=== PATIENT | male | born 1935 | race Caucasian/White ===

== ENCOUNTER → 2017-07-01 | Outpatient (CLI) | payer MEDICARE ==
[~2017-07-01] MED LIST: ALBU90OI INH; ATOR10 PO; Acidophilus La100 GM PO; Atrovent Inha12.9 GM INH; B Complex #11 EACH PO; B Complex1 EAC2 PO; BUME2 PO; Bactrim Ds Tab1 EACH PO; CEFU500 PO; CIPR500 PO; CODEINE-GUAIFE120 ML PO; DABI150C PO; DONE5 PO; FINA5 PO; HYDCHL25 PO; HYDR10; LACTOBACILLUS PO; LISI20 PO; NIFE60ER PO; NITR.4SL SL; Nifediac Cc60 MG PO; Norco 5-325 Ta1 EACH PO; Omeprazole20 M1 PO; POTCHL10ER PO; Pyridium100 MG PO; Pyridium200 MG PO; STOOL SOFTENER100 MG PO; TAMS.4ER PO; VOLTAREN GEL TOP; Zithromax250 MG PO
== END | disposition home or self-care (01) ==
LOC: LAB 07:35 → LAB SHORT 07:35
DX: R10.9 Unspecified abdominal pain (principal)
CPT/HCPCS: 87338

== ENCOUNTER 2018-10-03 15:21 | Emergency (ER) | payer MEDICARE ==
[~2018-10-03] VITALS: Ht 177.8 cm; Wt 77.1 kg
[2018-10-03 16:06] LABS: Source, Urine Clean Catch
[2018-10-03 16:12] LABS: BASOPHILS ABSOLUTE AUTO 0.08 K/mm3 (0.00-0.23); BASOPHILS PERCENT AUTO 1 % (0-2); EOSINOPHILS ABSOLUTE AUTO 0.15 K/mm3 (0.00-0.68); EOSINOPHILS PERCENT AUTO 1 % (0-6); Hematocrit 42.8 % (37.0-53.0); Hemoglobin 13.9 g/dL (13.5-17.5); IMMATURE GRAN PERCENT AUTO 1 % (0-1); LYMPHOCYTES ABSOLUTE AUTO 1.29 K/mm3 (0.84-5.20); LYMPHOCYTES PERCENT AUTO 8 % (21-46); MONOCYTES ABSOLUTE AUTO 1.68 K/mm3 (0.16-1.47); MONOCYTES PERCENT AUTO 11 % (4-13); Mean Corpuscular HGB 31.2 pg (26.0-34.0); Mean Corpuscular HGB Conc 32.5 g/dL (31.5-36.5); Mean Corpuscular Volume 96 fL (80-100); Mean Platelet Volume 9.2 fL (9.1-12.4); NEUTROPHILS ABSOLUTE AUTO 12.77 K/mm3 (1.96-9.15); NEUTROPHILS PERCENT AUTO 80 % (41-73); Platelet Count 235 K/mm3 (150-400); RDW Coefficient Variation 13.3 % (11.7-14.2); RDW Standard Deviation 47.8 fL (35.1-46.3); Red Blood Cell Count 4.45 M/mm3 (4.30-5.90); White Blood Cell Count 16.07 K/mm3 (4.00-11.30)
[2018-10-03 16:13] LABS: Bilirubin, Urine Neg (Neg); Blood, Urine 5+ (Neg); Glucose Qualitative, Urine Neg (Neg); Ketones, Urine 2+ (Neg); Leukocyte Esterase, Urine 2+ (Neg); Nitrite, Urine Neg (Neg); Protein, Urine 4+ (Neg); Urobilinogen, Urine NORM (Normal); pH, Urine 6.5 (5.0-8.0)
[2018-10-03 16:24] LABS: Appearance, Urine Bloody (Clear); Color, Urine Red (P-Yellow)
[2018-10-03] MEDS ORDERED: LORA.5 (16:24)
[2018-10-03] MEDS ORDERED: CLOBETASOL PRO0.5 GM (16:24)
[2018-10-03] MEDS ORDERED: HYDCHL25 PO (16:24)
[2018-10-03] MEDS ORDERED: DONEPEZIL HCL5 M1 PO (16:24)
[2018-10-03] MEDS ORDERED: ATORVASTATIN CA10 MG PO (16:25)
[2018-10-03] MEDS ORDERED: POTASSIUM CHLO20 MEQ PO (16:25)
[2018-10-03] MEDS ORDERED: LISI5 PO (16:25)
[2018-10-03] MEDS ORDERED: Fluocinonide60 ML (16:25)
[2018-10-03 16:26] LABS: Bacteria Many /hpf; Red Blood Cells, Urine TNTC /hpf (0-2); Squamous Epithelial Cells Not Seen /hpf (Few); White Blood Cells, Urine 25-50 /hpf (0-5)
[2018-10-03 16:32] LABS: Albumin, Blood 3.7 g/dL (3.4-5.0); Bilirubin, Total 1.1 mg/dL (0.1-1.0); Bun/Creatinine Ratio 19.7 (12.0-20.0); Creatinine, Blood 1.27 mg/dL (0.60-1.20); Globulin, Blood 3.6 g/dL (2.2-4.0); Potassium, Blood 3.6 mmol/L (3.5-5.5); Total Protein, Blood 7.3 g/dL (6.4-8.2)
[2018-10-03] MEDS ORDERED: CEPH500 PO (17:04)
[2018-10-03] MEDS ORDERED: OXYB5 PO (17:55)
== END 2018-10-03 18:29 | disposition home or self-care (01) ==
LOC: ER 15:21
PROVIDERS: Physician Assistant
DX: N39.0 Urinary tract infection, site not specified (principal); I10 Essential (primary) hypertension; I48.91 Unspecified atrial fibrillation; F32.9 Major depressive disorder, single episode, unspecified; E78.00 Pure hypercholesterolemia, unspecified; Z87.891 Personal history of nicotine dependence; Z79.899 Other long term (current) drug therapy
CPT/HCPCS: 36415; 51798; 80053; 81001; 85025; 87077; 87086; 87186; 96365; 99283-25; J0696

== ENCOUNTER → 2018-11-22 | Outpatient (CLI) | payer MEDICARE ==
[~2018-11-22] MED LIST changes: +ATORVASTATIN CA10 MG PO; +CEPH500 PO; +CLOBETASOL PRO0.5 GM; +DONEPEZIL HCL5 M1 PO; +Fluocinonide60 ML; +LISI5 PO; +LORA.5; +OXYB5 PO; +POTASSIUM CHLO20 MEQ PO
[2018-11-22 20:24] LABS: Appearance, Urine Clear (Clear); Bilirubin, Urine Neg (Neg); Blood, Urine 1+ (Neg); Color, Urine Amber (P-Yellow); Glucose Qualitative, Urine Neg (Neg); Ketones, Urine 1+ (Neg); Leukocyte Esterase, Urine 2+ (Neg); Nitrite, Urine Neg (Neg); Protein, Urine 2+ (Neg); Specific Gravity, Urine 1.025 (1.003-1.022); Urobilinogen, Urine 1+ (Normal)
[2018-11-22 20:52] LABS: Bacteria Many /hpf; Mucus Mod (0-Heavy); Squamous Epithelial Cells Rare /hpf (Few)
== END | disposition home or self-care (01) ==
LOC: LAB 19:28 → LAB SHORT 19:28
PROVIDERS: Physical Medicine & Rehabilitation Pain Medicine
DX: M54.5 Low back pain (principal)
CPT/HCPCS: 81001; 87086

== ENCOUNTER → 2018-12-20 | Outpatient (CLI) | payer MEDICARE ==
[2018-12-20 11:37] LABS: Source, Urine Clean Catch
[2018-12-20 12:51] LABS: Bilirubin, Urine Neg (Neg); Blood, Urine 3+ (Neg); Glucose Qualitative, Urine Neg (Neg); Ketones, Urine 1+ (Neg); Leukocyte Esterase, Urine 2+ (Neg); Nitrite, Urine Neg (Neg); Protein, Urine 2+ (Neg); Specific Gravity, Urine 1.015 (1.003-1.022); Urobilinogen, Urine 1+ (Normal)
[2018-12-20 13:34] LABS: Appearance, Urine Hazy (Clear); Bacteria Rare /hpf; Color, Urine Yellow (P-Yellow); Squamous Epithelial Cells Few /hpf (Few)
== END | disposition home or self-care (01) ==
LOC: LAB 11:35 → LAB SHORT 11:35
PROVIDERS: Nurse Practitioner Family
DX: R31.9 Hematuria, unspecified (principal)
CPT/HCPCS: 81001

== ENCOUNTER → 2019-02-16 | Outpatient (CLI) | payer MEDICARE ==
[2019-02-16 15:16] LABS: Albumin, Blood 3.5 g/dL (3.4-5.0); Anion Gap 8 mmol/L (6-16); Blood Urea Nitrogen 15 mg/dL (8-24); Bun/Creatinine Ratio 13.3 (12.0-20.0); CO2, Blood 27 mmol/L (21-32); Calcium, Blood 8.9 mg/dL (8.5-10.1); Chloride, Blood 103 mmol/L (98-108); Creatinine, Blood 1.13 mg/dL (0.60-1.20); Glomerular Filtration Rate >60 (60-); Glucose, Blood 93 mg/dL (70-99); Phosphorus, Blood 3.4 mg/dL (2.5-4.9); Potassium, Blood 3.7 mmol/L (3.5-5.5); Sodium, Blood 138 mmol/L (136-145)
[2019-02-16 20:10] LABS: Bilirubin, Urine Neg (Neg); Blood, Urine 1+ (Neg); Glucose Qualitative, Urine Neg (Neg); Ketones, Urine Neg (Neg); Leukocyte Esterase, Urine 1+ (Neg); Nitrite, Urine Neg (Neg); Protein, Urine 2+ (Neg); Urobilinogen, Urine NORM (Normal); pH, Urine 6.5 (5.0-8.0)
[2019-02-16 20:21] LABS: Appearance, Urine Clear (Clear); Color, Urine Yellow (P-Yellow)
[2019-02-16 20:23] LABS: Bacteria Few /hpf; Squamous Epithelial Cells Few /hpf (Few)
[2019-02-18 08:08] LABS: COMPLEMENT C3, SERUM 99 mg/dL (82-167); COMPLEMENT C4, SERUM 23 mg/dL (14-44)
[2019-02-18 11:44] LABS: Antinuclear Antibody Screen Positive (Negative)
[2019-02-18 13:07] LABS: ANTI-DSDNA ANTIBODIES <1 IU/mL (0-9); RNP ANTIBODIES 0.4 AI (0.0-0.9); SJOGREN'S ANTI-SS-A <0.2 AI (0.0-0.9); SJOGREN'S ANTI-SS-B <0.2 AI (0.0-0.9); SMITH ANTIBODIES <0.2 AI (0.0-0.9)
[2019-02-21 11:28] LABS: ANA Pattern Homogenous
[2019-02-23 10:07] LABS: ANA DIRECT Negative (Negative); ANTIMYELOPEROXIDASE (MPO) ABS <9.0 U/mL (0.0-9.0); ANTIPROTEINASE 3 (PR-3) ABS <3.5 U/mL (0.0-3.5); ATYPICAL PANCA <1:20 titer (Neg:<1:20); CYTOPLASMIC (C-ANCA) <1:20 titer (Neg:<1:20); PERINUCLEAR (P-ANCA) <1:20 titer (Neg:<1:20)
== END | disposition home or self-care (01) ==
LOC: LAB SHORT 14:15 → LAB 14:15
PROVIDERS: Internal Medicine
DX: N18.3 Chronic kidney disease, stage 3 (moderate) (principal); N39.0 Urinary tract infection, site not specified
CPT/HCPCS: 80069; 81001; 83520; 86038; 86039; 86160; 86225; 86235; 86256

== ENCOUNTER 2020-03-27 08:06 | Day surgery (SDC) | payer MEDICARE ==
[~2020-03-27] VITALS: Ht 177.8 cm; Wt 69.8 kg
[~2020-03-27 08:06] MED LIST changes: +ACET500 PO; +AMLO5 PO; +CYAN500 PO; +MELA3 PO; +POTCHL20ER PO; +PROBIOTIC1 EA13 PO; +VITAMIN D310 MC5 PO
--- NOTE | 2020-03-27 12:14 | NUR ---
TO DROWSY TO ASSES FOR SENSATION AT THIS TIME BLADDER SCAN COMPLETED 102 CC
--- NOTE | 2020-03-27 17:58 | NUR ---
SUMMARY VSS, DENIES ANY PAIN, PT MORE AWAKE, MOVES FEET ON COMMAND, DENIES ANY NUMBNESS OR TINGLING, VOIDED 200CC C/Y URINE, DSG C/D/I, POLAR PACK IN PLACE, NO ACUTE CHANGES THIS SHIFT.
--- NOTE | 2020-03-28 02:38 | NUR ---
SHIFT SUMMARY: POD 1 TOTAL LEFT KNEE PATIENT IS ALERT AND ORIENTED X4 WHILE AWAKE. PATIENT'S REPORTED HE CAN GET MORE CONFUSED AT NIGHT, BUT SO FAR TONIGHT HE HASN'T BEEN. VS ARE WNL AND IS ON RA WITH >90% OXYGEN SATS. PATIENT DENIES PAIN DURING THE SHIFT BUT HAS HAD SCHEDULED TYLENOL AND TORADOL. PATIENT IS TOLERATING PO INTAKE AND IS VOIDING. HE DENIES NUMBNESS AND TINGLING. HE IS ALSO ABLE TO WIGGLE FINGERS AND TOES. THE PLAN IS TO WORK WITH PT/OT LATER TODAY.
[2020-03-28 05:01] LABS: BASOPHILS ABSOLUTE AUTO 0.02 K/mm3 (0.00-0.23); BASOPHILS PERCENT AUTO 0 % (0-2); EOSINOPHILS PERCENT AUTO 0 % (0-6); Hematocrit 38.3 % (37.0-53.0); Hemoglobin 12.4 g/dL (13.5-17.5); IMMATURE GRAN ABSOLUTE AUTO 0.08 K/mm3 (0.00-0.10); IMMATURE GRAN PERCENT AUTO 1 % (0-1); LYMPHOCYTES ABSOLUTE AUTO 0.93 K/mm3 (0.84-5.20); LYMPHOCYTES PERCENT AUTO 7 % (21-46); MONOCYTES ABSOLUTE AUTO 1.17 K/mm3 (0.16-1.47); MONOCYTES PERCENT AUTO 8 % (4-13); Mean Corpuscular HGB 30.5 pg (26.0-34.0); Mean Corpuscular HGB Conc 32.4 g/dL (31.5-36.5); Mean Corpuscular Volume 94 fL (80-100); Mean Platelet Volume 9.5 fL (9.1-12.4); NEUTROPHILS ABSOLUTE AUTO 12.16 K/mm3 (1.96-9.15); NEUTROPHILS PERCENT AUTO 85 % (41-73); Platelet Count 196 K/mm3 (150-400); RDW Coefficient Variation 13.2 % (11.7-14.2); RDW Standard Deviation 46.3 fL (35.1-46.3); Red Blood Cell Count 4.06 M/mm3 (4.30-5.90); White Blood Cell Count 14.36 K/mm3 (4.00-11.30)
[2020-03-28 05:22] LABS: Bun/Creatinine Ratio 21.1 (12.0-20.0); Calcium, Blood 8.5 mg/dL (8.5-10.1); Creatinine, Blood 1.28 mg/dL (0.60-1.20); Potassium, Blood 3.2 mmol/L (3.5-5.5)
[2020-03-28] MEDS ORDERED: Percocet 5-3251 EACH PO (08:29)
--- NOTE | 2020-03-28 12:50 | NUR ---
PATIENT D/C'D HOME WITH AT THIS TIME; BOTH STATE UNDERSTANDING OF WOUND CARE, ACTIVITY, MEDS, F/U APPT, OP PT, ETC. PATIENT STATES NO PAIN AT THIS TIME. NO ACUTE CHANGES OR C/O.
== END 2020-03-28 12:50 | disposition home or self-care (01) ==
LOC: ORSCMMR 08:06 → ORD 08:15 → SURS 12:40 → ORSCMMR 03-28 12:50
PROVIDERS: Orthopaedic Surgery
PROC: 0SRD0JA Replacement of Left Knee Joint with Synthetic Substitute, Uncemented, Open Approach (ICD-10-PCS; principal; 2020-03-27 08:15)
PROC: 8E0YXBZ Computer Assisted Procedure of Lower Extremity (ICD-10-PCS; principal; 2020-03-27 08:15)
DX: M17.12 Unilateral primary osteoarthritis, left knee (principal); I10 Essential (primary) hypertension; Z79.899 Other long term (current) drug therapy
CPT/HCPCS: 36415; 73560-LT; 80048; 85025; 88300; 97110; 97116; 97162; 97530; A9270; C1776; J0171; J0690; J0735; J1100; J1885; J2250; J2370; J2405; J2704; J2795; J3010; J7120

== ENCOUNTER 2021-07-16 16:29 | Emergency (ER) | payer MEDICARE ==
[~2021-07-16] VITALS: Ht 177.8 cm; Wt 68.0 kg
[~2021-07-16 16:29] MED LIST changes: +Percocet 5-3251 EACH PO
[2021-07-16 17:49] LABS: BASOPHILS ABSOLUTE AUTO 0.04 K/mm3 (0.00-0.23); BASOPHILS PERCENT AUTO 0 % (0-2); EOSINOPHILS ABSOLUTE AUTO 0.07 K/mm3 (0.00-0.68); EOSINOPHILS PERCENT AUTO 1 % (0-6); Hematocrit 36.2 % (37.0-53.0); Hemoglobin 11.7 g/dL (13.5-17.5); IMMATURE GRAN ABSOLUTE AUTO 0.14 K/mm3 (0.00-0.10); IMMATURE GRAN PERCENT AUTO 1 % (0-1); LYMPHOCYTES ABSOLUTE AUTO 1.14 K/mm3 (0.84-5.20); LYMPHOCYTES PERCENT AUTO 8 % (21-46); MONOCYTES ABSOLUTE AUTO 1.82 K/mm3 (0.16-1.47); MONOCYTES PERCENT AUTO 13 % (4-13); Mean Corpuscular HGB 29.7 pg (26.0-34.0); Mean Corpuscular HGB Conc 32.3 g/dL (31.5-36.5); Mean Corpuscular Volume 92 fL (80-100); Mean Platelet Volume 9.5 fL (9.1-12.4); NEUTROPHILS ABSOLUTE AUTO 10.57 K/mm3 (1.96-9.15); NEUTROPHILS PERCENT AUTO 77 % (41-73); Platelet Count 217 K/mm3 (150-400); RDW Coefficient Variation 13.5 % (11.7-14.2); RDW Standard Deviation 45.9 fL (35.1-46.3); Red Blood Cell Count 3.94 M/mm3 (4.30-5.90); White Blood Cell Count 13.78 K/mm3 (4.00-11.30)
[2021-07-16 18:17] LABS: Albumin, Blood 2.8 g/dL (3.4-5.0); Albumin/Globulin Ratio 0.7 (0.8-1.8); Bilirubin, Total 1.2 mg/dL (0.1-1.0); Bun/Creatinine Ratio 19.5 (12.0-20.0); Calcium, Blood 9.1 mg/dL (8.5-10.1); Creatinine, Blood 1.23 mg/dL (0.60-1.20); Globulin, Blood 4.1 g/dL (2.2-4.0); Potassium, Blood 3.7 mmol/L (3.5-5.5); Total Protein, Blood 6.9 g/dL (6.4-8.2)
[2021-07-16 22:52] LABS: Source, Urine Clean Catch
[2021-07-16 22:58] LABS: Bilirubin, Urine Neg (Neg); Blood, Urine 2+ (Neg); Glucose Qualitative, Urine Neg (Neg); Ketones, Urine 2+ (Neg); Leukocyte Esterase, Urine 3+ (Neg); Nitrite, Urine Neg (Neg); Protein, Urine 2+ (Neg); Urobilinogen, Urine 1+ (Normal)
[2021-07-16 22:59] LABS: Appearance, Urine Hazy (Clear); Color, Urine Yellow (P-Yellow)
[2021-07-16 23:00] LABS: Bacteria Few /hpf; Mucus Light (0-Heavy); Red Blood Cells, Urine 0-2 /hpf (0-2); Squamous Epithelial Cells Not Seen /hpf (Few); White Blood Cells, Urine 25-50 /hpf (0-5)
[2021-07-16] MEDS ORDERED: SULTRIDS PO (23:30)
== END 2021-07-17 03:59 | disposition home or self-care (01) ==
LOC: ER 16:29
PROVIDERS: Physician Assistant
DX: S90.31XA Contusion of right foot, initial encounter (principal); S20.212A Contusion of left front wall of thorax, initial encounter; N39.0 Urinary tract infection, site not specified; R41.0 Disorientation, unspecified; W18.2XXA Fall in (into) shower or empty bathtub, initial encounter; Z79.899 Other long term (current) drug therapy; I10 Essential (primary) hypertension; I48.91 Unspecified atrial fibrillation; E78.00 Pure hypercholesterolemia, unspecified
CPT/HCPCS: 36415; 70450; 71101; 73630; 80053; 81001; 85025; 87077; 87086; 87186; 93005; 93010; 99285-25; A9270

== ENCOUNTER → 2021-08-13 | Outpatient (CLI) | payer MEDICARE ==
[~2021-08-13] MED LIST changes: +SULTRIDS PO
[2021-08-13 13:17] LABS: Source, Urine Voided
[2021-08-13 18:15] LABS: Bilirubin, Urine Neg (Neg); Blood, Urine 1+ (Neg); Color, Urine Yellow (P-Yellow); Glucose Qualitative, Urine Neg (Neg); Ketones, Urine Neg (Neg); Leukocyte Esterase, Urine Neg (Neg); Nitrite, Urine Neg (Neg); Protein, Urine Neg (Neg); Urobilinogen, Urine NORM (Normal)
[2021-08-13 18:29] LABS: Appearance, Urine Clear (Clear)
[2021-08-13 18:30] LABS: Bacteria Mod /hpf; Squamous Epithelial Cells Few /hpf (Few)
== END | disposition home or self-care (01) ==
LOC: LAB 09:15 → LAB SHORT 09:15
PROVIDERS: Family Medicine
DX: N39.0 Urinary tract infection, site not specified (principal)
CPT/HCPCS: 81001

== ENCOUNTER → 2023-06-16 | Outpatient (CLI) | payer MEDICARE ==
[~2023-06-16] MED LIST changes: +CITALOPRAM HBR10 MG PO
[2023-06-16 10:23] LABS: Source, Urine Voided
[2023-06-16 12:49] LABS: Appearance, Urine Clear (Clear); Bilirubin, Urine Neg (Neg); Blood, Urine 3+ (Neg); Color, Urine Yellow (P-Yellow); Glucose Qualitative, Urine Neg (Neg); Ketones, Urine Neg (Neg); Leukocyte Esterase, Urine Neg (Neg); Nitrite, Urine Neg (Neg); Protein, Urine 2+ (Neg); Specific Gravity, Urine 1.025 (1.003-1.022); Urobilinogen, Urine NORM (Normal)
[2023-06-16 13:20] LABS: Calcium Oxalate Crystals Few /hpf
[2023-06-16 13:22] LABS: Bacteria Few /hpf; Hyaline Casts 0-2 /lpf (0-2); Mucus Light (0-Heavy); Squamous Epithelial Cells Few /hpf (Few)
== END | disposition home or self-care (01) ==
LOC: LAB SHORT 09:20 → LAB 09:20
PROVIDERS: Nurse Practitioner Family
DX: R30.0 Dysuria (principal)
CPT/HCPCS: 81001

== ENCOUNTER 2023-06-17 14:06 | Emergency (ER) | payer MEDICARE ==
[~2023-06-17] VITALS: Ht 177.8 cm; Wt 67.1 kg
[~2023-06-17 14:06] MED LIST changes: -CITALOPRAM HBR10 MG PO
[2023-06-17] MEDS ORDERED: CITALOPRAM HBR10 MG PO (14:51)
[2023-06-17] MEDS ORDERED: Ondansetron HCl 2 MG / ML 2ML Vial IV ONE (15:05)
[2023-06-17 15:13] LABS: BASOPHILS ABSOLUTE AUTO 0.07 K/mm3 (0.00-0.23); BASOPHILS PERCENT AUTO 1 % (0-2); EOSINOPHILS ABSOLUTE AUTO 0.14 K/mm3 (0.00-0.68); EOSINOPHILS PERCENT AUTO 1 % (0-6); Hematocrit 40.6 % (37.0-53.0); Hemoglobin 12.1 g/dL (13.5-17.5); IMMATURE GRAN ABSOLUTE AUTO 0.04 K/mm3 (0.00-0.10); IMMATURE GRAN PERCENT AUTO 0 % (0-1); LYMPHOCYTES ABSOLUTE AUTO 2.25 K/mm3 (0.84-5.20); LYMPHOCYTES PERCENT AUTO 22 % (21-46); MONOCYTES ABSOLUTE AUTO 0.95 K/mm3 (0.16-1.47); MONOCYTES PERCENT AUTO 9 % (4-13); Mean Corpuscular HGB 25.2 pg (26.0-34.0); Mean Corpuscular HGB Conc 29.8 g/dL (31.5-36.5); Mean Corpuscular Volume 85 fL (80-100); Mean Platelet Volume 8.9 fL (9.1-12.4); NEUTROPHILS ABSOLUTE AUTO 6.67 K/mm3 (1.96-9.15); NEUTROPHILS PERCENT AUTO 66 % (41-73); Platelet Count 266 K/mm3 (150-400); RDW Coefficient Variation 21.6 % (11.7-14.2); RDW Standard Deviation 66.4 fL (35.1-46.3); White Blood Cell Count 10.12 K/mm3 (4.00-11.30)
[2023-06-17 15:34] LABS: Albumin, Blood 3.6 g/dL (3.4-5.0); Albumin/Globulin Ratio 1.1 (0.8-1.8); Bilirubin, Total 1.3 mg/dL (0.1-1.0); Bun/Creatinine Ratio 22.7 (12.0-20.0); Calcium, Blood 9.6 mg/dL (8.5-10.1); Creatinine, Blood 1.19 mg/dL (0.60-1.20); Globulin, Blood 3.3 g/dL (2.2-4.0); Potassium, Blood 3.9 mmol/L (3.5-5.5); Thyroid Stimulating Hormone 1.15 uIU/mL (0.360-4.800); Total Protein, Blood 6.9 g/dL (6.4-8.2)
[2023-06-17 16:08] LABS: Influenza A, PCR NEGATIVE (NEGATIVE); Influenza B, PCR NEGATIVE (NEGATIVE); Resp Syncytial Virus, PCR NEGATIVE (NEGATIVE); SARS-Cov-2 (COVID-19) PCR, MMC NEGATIVE (NEGATIVE)
[2023-06-17] MEDS ORDERED: NS 1,000 ML IV SCH (17:15)
[2023-06-17 18:30] VITALS: BP 144/82
== END 2023-06-17 18:56 | disposition home or self-care (01) ==
LOC: ER 14:06
PROVIDERS: Emergency Medicine
DX: R53.83 Other fatigue (principal); I10 Essential (primary) hypertension; E78.00 Pure hypercholesterolemia, unspecified; Z79.899 Other long term (current) drug therapy
CPT/HCPCS: 0241U; 71045; 74177; 80053; 84443; 84484; 85025; 93005; 93010; 96374-59; 99285-25; J2405; J7030; Q9967

== ENCOUNTER 2023-07-07 09:56 | Emergency (ER) | payer MEDICARE ==
[~2023-07-07] VITALS: Ht 182.9 cm; Wt 81.7 kg
[~2023-07-07 09:56] MED LIST changes: +CITALOPRAM HBR10 MG PO; +Calcium Chloride 10% 10 ML SYR IV ONE; +EPINEPhrine HCl 0.1 MG/ML 10ML SYR IV ONE
[2023-07-07] MEDS ORDERED: Tranexamic Acid 100 ML IV ONE (10:05)
[2023-07-07] MEDS ORDERED: Lactated Ringer's 1,000 ML IV ONE (10:10)
[2023-07-07 10:20] LABS: Calcium, Ionized (POC) 1.19 mmol/L (1.10-1.46); Chloride (POC) 102 mmol/L (98-108); Creatinine (POC) 1.2 mg/dL (0.8-1.3); Glucose (ISTAT POC) 169 mg/dL (70-99); Hemoglobin (POC) 10.9 g/dL (13.5-17.5); Potassium (POC) 3.3 mmol/L (3.5-5.5); Sodium (POC) 138 mmol/L (135-148); Total CO2 (POC) 21 mmol/L (21-32)
[2023-07-07 10:22] LABS: BASOPHILS ABSOLUTE AUTO 0.06 K/mm3 (0.00-0.23); BASOPHILS PERCENT AUTO 0 % (0-2); EOSINOPHILS ABSOLUTE AUTO 0.49 K/mm3 (0.00-0.68); EOSINOPHILS PERCENT AUTO 3 % (0-6); Hematocrit 29.9 % (37.0-53.0); Hemoglobin 8.9 g/dL (13.5-17.5); IMMATURE GRAN ABSOLUTE AUTO 0.34 K/mm3 (0.00-0.10); IMMATURE GRAN PERCENT AUTO 2 % (0-1); LYMPHOCYTES PERCENT AUTO 22 % (21-46); MONOCYTES ABSOLUTE AUTO 1.09 K/mm3 (0.16-1.47); MONOCYTES PERCENT AUTO 7 % (4-13); Mean Corpuscular HGB 26.5 pg (26.0-34.0); Mean Corpuscular HGB Conc 29.8 g/dL (31.5-36.5); Mean Corpuscular Volume 89 fL (80-100); Mean Platelet Volume 9.1 fL (9.1-12.4); NEUTROPHILS ABSOLUTE AUTO 9.88 K/mm3 (1.96-9.15); NEUTROPHILS PERCENT AUTO 65 % (41-73); Platelet Count 238 K/mm3 (150-400); RDW Coefficient Variation 20.2 % (11.7-14.2); RDW Standard Deviation 66.5 fL (35.1-46.3); Red Blood Cell Count 3.36 M/mm3 (4.30-5.90); White Blood Cell Count 15.16 K/mm3 (4.00-11.30)
[2023-07-07 10:37] LABS: International Normalized Ratio 1.38; Prothrombin Time Results 14.4 Sec (9.7-11.5)
[2023-07-07] MEDS ORDERED: Tranexamic Acid 1000 MG/10 ML 10ML Vial (SDV) ONE (10:45)
[2023-07-07 10:47] LABS: Albumin, Blood 2.6 g/dL (3.4-5.0); Albumin/Globulin Ratio 0.9 (0.8-1.8); Bilirubin, Total 0.8 mg/dL (0.1-1.0); Bun/Creatinine Ratio 22.2 (12.0-20.0); Calcium, Blood 8.2 mg/dL (8.5-10.1); Creatinine, Blood 1.08 mg/dL (0.60-1.20); Globulin, Blood 2.9 g/dL (2.2-4.0); Potassium, Blood 3.3 mmol/L (3.5-5.5); Total Protein, Blood 5.5 g/dL (6.4-8.2)
[2023-07-07] MEDS ORDERED: NS 1,000 ML IV ONE ×2 (10:52→11:04)
[2023-07-07 11:20] LABS: PCO2 Arterial 45 mmHg (35-45); PO2 Arterial 135 mmHg (80-100); pH Blood Arterial 7.23 (7.35-7.45)
[2023-07-07 11:20] LABS: Creatinine (POC) 0.9 mg/dL (0.8-1.3)
[2023-07-07] MEDS ORDERED: HUMAN PROTHROMBIN COMPLX IV ONE (11:55)
[2023-07-07] MEDS ORDERED: WATER FOR INJECTION STERILE IV ONE (11:55)
[2023-07-07 12:06] LABS: Source, Urine Foley catheter
[2023-07-07 12:07] LABS: PO2 Arterial 155 mmHg (80-100); pH Blood Arterial 7.27 (7.35-7.45)
[2023-07-07 12:10] LABS: Appearance, Urine Clear (Clear); Bilirubin, Urine Neg (Neg); Blood, Urine 3+ (Neg); Color, Urine Yellow (P-Yellow); Glucose Qualitative, Urine 2+ (Neg); Ketones, Urine Neg (Neg); Leukocyte Esterase, Urine Neg (Neg); Nitrite, Urine Neg (Neg); Protein, Urine 2+ (Neg); Urobilinogen, Urine NORM (Normal); pH, Urine 6.5 (5.0-8.0)
[2023-07-07 12:21] LABS: Bacteria Rare /hpf; Mucus Light (0-Heavy); Squamous Epithelial Cells Not Seen /hpf (Few)
[2023-07-07] MEDS ORDERED: AMLODIPINE BES2.5 MG PO (12:24)
[2023-07-07] MEDS ORDERED: LORazepam 2 MG/ML 1ML Injection IV PRN ×2 (13:30→13:55)
[2023-07-07] MEDS ORDERED: Morphine Sulfate 10 MG/ML 1MLSYR IV PRN ×2 (13:30→13:50)
[2023-07-07] MEDS ORDERED: Morphine Sulfate 20 MG/1ML 1 ML Oral Syringe SL PRN (13:50)
[2023-07-07] MEDS ORDERED: Scopolamine Hydrobromide Patch TOP PRN (13:50)
[2023-07-07] MEDS ORDERED: Atropine Sulfate 1% Opth Soln 2ML BTL SL PRN (13:50)
[2023-07-07 13:52] VITALS: BP 49/32
[2023-07-07] MEDS ORDERED: LORazepam 1 MG Tab PO PRN (13:55)
--- NOTE | 2023-07-07 14:44 | NUR ---
After receiving a request for spiritual care services from the ED staff, I came to ER 26 and met Aurora, the patient's spouse. She tells is tearful and tells me about their Religious background, about their family and about the kind of man that the patient was. I provided prayer then led her back to the consult room while the patient was extubated. We explore her coping skills and resources. She to call her dtr and son and I check on how the extubation is going. Once the patient is extubated and cleaned up, I bring Aurora back to ER 26 and patient expires peacefully. I said a prayer and provided grief support. Aurora showed signs of being comforted.
[2023-07-08] MEDS ORDERED: EPINEPhrine HCl 0.1 MG/ML 10ML SYR IV ONE ×2 (10:04)
== END 2023-07-07 16:00 ==
LOC: ER 09:56
PROVIDERS: Emergency Medicine
DX: I46.9 Cardiac arrest, cause unspecified (principal); K92.2 Gastrointestinal hemorrhage, unspecified; Z87.891 Personal history of nicotine dependence; I10 Essential (primary) hypertension; E78.00 Pure hypercholesterolemia, unspecified; I48.91 Unspecified atrial fibrillation; Z79.899 Other long term (current) drug therapy
CPT/HCPCS: 36430; 36620; 36680; 51702; 70450; 71045; 74174; 80047; 80053; 81001; 82565; 82803; 83690; 85014; 85025; 85610; 86850; 86900; 86901; 86923; 92950; 94002; 96374-59; 96375-59; 99291-25; J2060; J2270; J7030; J7050; J7168; P9016; P9035; P9059; Q9967